=== PATIENT | female | born 1950 | race Caucasian/White ===

== ENCOUNTER → 2017-08-24 | Outpatient (CLI) | payer MEDICARE, BC ==
--- NOTE | 2017-08-25 17:42 | TR ---
Date Performed: 08/24/2017 Time Performed: 12:06:46 DOCTOR: Marilia Cui DRUG LIST: CLINICAL HISTORY: CHEST PAIN REASON FOR TEST: REASON FOR ENDING: OBSERVATION: CONCLUSION: OSCAR PROTOCOL. NO CP. TEST STOPPED AFTER EXCEEDING GOAL HR SECONDARY TO SOB AND LEG FATIGUE.Maximum DH=815 % Max HR Naoikjbc=797.0% Maximum FY=025/80 Total Exercise Time=7:00 COMMENTS: No ischemia
== END ==
LOC: HCAV 11:24
PROVIDERS: ATTEND Allergy & Immunology
DX: R07.1 Chest pain on breathing (principal)
CPT/HCPCS: 93017